=== PATIENT | female | born 1950 | race Caucasian/White ===

== ENCOUNTER → 2017-08-02 | Outpatient (CLI) | payer MEDICARE, OTHER ==
[~2017-08-02] MED LIST: ACET325 PO; ACET500 PO; ALBU3IS INH; ALBU90OI INH; ALPHA LIPOIC A600 MG PO; AMOCLA875 PO; ASPI81CH PO; BUDE6HFA INH; Bactrim 400-801 EACH PO; CEFP500 PO; CEPH250A PO; CEPH500 PO; CHOL10002 PO; CIPR500 PO; CITRACAL + D M1 EACH PO; CITRACAL-VIT D1 EAC1 PO; Colace250 MG GT; Coughtab200 MG PO; Cranberry300 MG PO; Cranberry400 MG PO; D MANNOSE MC; DIVA500EC PO; DOCU100 PO; DULO60 PO; ELLURA200 MG; EQ GENTLE30 ML BOTHEYES; ERGO50000 PO; FERRLECIT62.5 MG/5 IV; FISH1000 PO; FLOVENT INH; FLUT110OIA INH; FURO20 PO; GABA300 PO; GAVILAX17 GM PO; HYALURONIDASE INJ; HYDCOR20 PO; Hydrocodone-Ap1 EA20 PO; IMMUNE GLOBULIN INJ; IVIG; Imitrex50 MG PO; KETO.5OPSO; LIDO5TP TOP; LISI5 PO; MAGOX 400400 MG PO; MAGOXI400 PO; MOME220I; MORP15ER PO; MYCO250 PO; Micro-K10 MEQ PO; NAPR500ERA PO; NYST100TC TOP; ONDA4ODT; Omeprazole20 M1; Omeprazole20 M1 PO; POLTRIOPSO BOTHEYES; POTCHL10ER PO; PRED1SU BOTHEYES; PSYL5.85P PO; Potassium Chlo10 ME2 PO; Prilosec20 MG PO; SACC250C; SPIR25 PO; SULTRIDS PO; SUMA25 PO; Solaraze100 GM TOP; Solu-Medrol500 MG IJ; TOLT4 PO; TRIHYD253A PO; TROSPIUM CHLORI60 MG PO; Tylenol325 MG PO; ZONI100 PO; Zofran4 MG PO
== END | disposition home or self-care (01) ==
LOC: LAB 09:02
DX: J02.9 Acute pharyngitis, unspecified (principal)
CPT/HCPCS: 87070

== ENCOUNTER 2017-09-05 00:18 | Day surgery (SDC) | payer MEDICARE, OTHER ==
[~2017-09-05 00:18] MED LIST changes: -ZONI100 PO
== END 2017-09-05 14:40 | disposition home or self-care (01) ==
LOC: ATC 00:18
DX: Z45.2 Encounter for adjustment and management of vascular access device (principal)
CPT/HCPCS: 96523; J1642

== ENCOUNTER 2017-10-04 00:48 | Day surgery (SDC) | payer MEDICARE, OTHER | END 2017-10-04 16:05 | disposition home or self-care (01) | LOC: ATC 00:48 | DX: Z45.2 Encounter for adjustment and management of vascular access device (principal); G61.81 Chronic inflammatory demyelinating polyneuritis; K74.60 Unspecified cirrhosis of liver; J45.909 Unspecified asthma, uncomplicated | CPT/HCPCS: 96523; J1642 ==

== ENCOUNTER 2017-11-02 00:48 | Day surgery (SDC) | payer MEDICARE, OTHER | END 2017-11-02 22:35 | disposition home or self-care (01) | LOC: ATC 00:48 | DX: Z45.2 Encounter for adjustment and management of vascular access device (principal); G61.81 Chronic inflammatory demyelinating polyneuritis; J45.909 Unspecified asthma, uncomplicated; I27.20 Pulmonary hypertension, unspecified; D64.9 Anemia, unspecified ==

== ENCOUNTER 2017-11-09 00:25 | Day surgery (SDC) | payer MEDICARE, OTHER ==
[2017-11-09] MEDS ORDERED: ZONI100 PO (14:09)
== END 2017-11-09 14:19 | disposition home or self-care (01) ==
LOC: ATC 00:25
DX: Z45.2 Encounter for adjustment and management of vascular access device (principal); G61.81 Chronic inflammatory demyelinating polyneuritis
CPT/HCPCS: 96523; J1642

== ENCOUNTER 2017-12-09 00:16 | Day surgery (SDC) | payer MEDICARE, OTHER ==
[~2017-12-09 00:16] MED LIST changes: +ZONI100 PO
== END 2017-12-09 13:50 | disposition home or self-care (01) ==
LOC: ATC 00:16
DX: Z45.2 Encounter for adjustment and management of vascular access device (principal); D64.9 Anemia, unspecified
CPT/HCPCS: 96523; J1642

== ENCOUNTER → 2018-01-05 | Outpatient (CLI) | payer MEDICARE, OTHER | LOC: LAB 15:35 → LAB SHORT 15:35 | DX: R30.0 Dysuria (principal) | CPT/HCPCS: 87077; 87086; 87186 ==

== ENCOUNTER 2020-06-14 15:22 | Emergency (ER) | payer MEDICARE, OTHER ==
[~2020-06-14] VITALS: Ht 152.4 cm; Wt 81.7 kg
[2020-06-14 16:34] LABS: BASOPHILS ABSOLUTE AUTO 0.01 K/mm3 (0.00-0.23); BASOPHILS PERCENT AUTO 0 % (0-2); EOSINOPHILS PERCENT AUTO 0 % (0-6); Hematocrit 41.6 % (33.0-51.0); Hemoglobin 13.3 g/dL (11.5-16.0); IMMATURE GRAN ABSOLUTE AUTO 0.07 K/mm3 (0.00-0.10); IMMATURE GRAN PERCENT AUTO 1 % (0-1); LYMPHOCYTES PERCENT AUTO 5 % (21-46); MONOCYTES ABSOLUTE AUTO 0.92 K/mm3 (0.16-1.47); MONOCYTES PERCENT AUTO 7 % (4-13); Mean Corpuscular HGB 24.3 pg (26.0-34.0); Mean Corpuscular Volume 76 fL (80-100); Mean Platelet Volume 11.9 fL (9.1-12.4); NEUTROPHILS ABSOLUTE AUTO 11.08 K/mm3 (1.96-9.15); NEUTROPHILS PERCENT AUTO 87 % (41-73); Platelet Count 198 K/mm3 (150-400); RDW Coefficient Variation 15.5 % (11.7-14.2); RDW Standard Deviation 42.3 fL (35.1-46.3); Red Blood Cell Count 5.47 M/mm3 (3.80-5.20); White Blood Cell Count 12.68 K/mm3 (4.00-11.30)
[2020-06-14 16:53] LABS: Alanine Aminotransfer (ALT/SGP 25 U/L (12-78); Albumin, Blood 4.1 g/dL (3.4-5.0); Albumin/Globulin Ratio 1.3 (0.8-1.8); Alk Phos 59 U/L (50-136); Anion Gap 5 mmol/L (6-16); Aspartate Aminotrans (AST/SGOT 20 U/L (12-37); Bilirubin, Total 0.7 mg/dL (0.1-1.0); Blood Urea Nitrogen 16 mg/dL (8-24); Bun/Creatinine Ratio 30.7 (12.0-20.0); CO2, Blood 26 mmol/L (21-32); Calcium, Blood 8.8 mg/dL (8.5-10.1); Chloride, Blood 110 mmol/L (98-108); Creatinine, Blood 0.52 mg/dL (0.40-1.00); Globulin, Blood 3.1 g/dL (2.2-4.0); Glomerular Filtration Rate >60 (60-); Glucose, Blood 94 mg/dL (70-99); Potassium, Blood 3.6 mmol/L (3.5-5.5); Sodium, Blood 141 mmol/L (136-145); Total Protein, Blood 7.2 g/dL (6.4-8.2)
[2020-06-14 18:36] LABS: Source, Urine Clean Catch
[2020-06-14 18:42] LABS: Appearance, Urine Clear (Clear); Bilirubin, Urine Neg (Neg); Blood, Urine 1+ (Neg); Color, Urine Yellow (P-Yellow); Glucose Qualitative, Urine Neg (Neg); Ketones, Urine Neg (Neg); Leukocyte Esterase, Urine 2+ (Neg); Nitrite, Urine Neg (Neg); Protein, Urine 1+ (Neg); Urobilinogen, Urine NORM (Normal)
[2020-06-14 18:54] LABS: Bacteria Mod /hpf; Squamous Epithelial Cells Rare /hpf (Few)
== END 2020-06-14 20:08 | disposition home or self-care (01) ==
LOC: ER 15:22
PROVIDERS: Emergency Medicine; Physician Assistant
DX: K52.9 Noninfective gastroenteritis and colitis, unspecified (principal); Z88.5 Allergy status to narcotic agent; Z79.82 Long term (current) use of aspirin; Z79.51 Long term (current) use of inhaled steroids; Z79.899 Other long term (current) drug therapy; Z86.73 Personal history of transient ischemic attack (TIA), and cerebral infarction without residual deficits
CPT/HCPCS: 36415; 74177; 80053; 81001; 83690; 85025; 96361; 96374; 99284-25; J2405; J7030; Q9967

== ENCOUNTER 2021-01-25 15:39 | Emergency (ER) | payer MEDICARE, OTHER ==
[~2021-01-25] VITALS: Ht 152.4 cm; Wt 86.2 kg
[2021-01-25 17:04] LABS: Source, Urine Voided
[2021-01-25 17:14] LABS: BASOPHILS ABSOLUTE AUTO 0.02 K/mm3 (0.00-0.23); BASOPHILS PERCENT AUTO 0 % (0-2); EOSINOPHILS ABSOLUTE AUTO 0.03 K/mm3 (0.00-0.68); EOSINOPHILS PERCENT AUTO 1 % (0-6); Hematocrit 35.3 % (33.0-51.0); Hemoglobin 11.1 g/dL (11.5-16.0); IMMATURE GRAN PERCENT AUTO 0 % (0-1); LYMPHOCYTES ABSOLUTE AUTO 1.36 K/mm3 (0.84-5.20); LYMPHOCYTES PERCENT AUTO 27 % (21-46); MONOCYTES ABSOLUTE AUTO 0.52 K/mm3 (0.16-1.47); MONOCYTES PERCENT AUTO 10 % (4-13); Mean Corpuscular HGB 21.4 pg (26.0-34.0); Mean Corpuscular HGB Conc 31.4 g/dL (31.5-36.5); Mean Corpuscular Volume 68 fL (80-100); NEUTROPHILS ABSOLUTE AUTO 3.13 K/mm3 (1.96-9.15); NEUTROPHILS PERCENT AUTO 62 % (41-73); Platelet Count 202 K/mm3 (150-400); RDW Coefficient Variation 18.3 % (11.7-14.2); RDW Standard Deviation 44.5 fL (35.1-46.3); Red Blood Cell Count 5.18 M/mm3 (3.80-5.20); White Blood Cell Count 5.06 K/mm3 (4.00-11.30)
[2021-01-25 17:15] LABS: Appearance, Urine Clear (Clear); Bilirubin, Urine Neg (Neg); Blood, Urine Neg (Neg); Color, Urine Yellow (P-Yellow); Glucose Qualitative, Urine Neg (Neg); Ketones, Urine Neg (Neg); Leukocyte Esterase, Urine 1+ (Neg); Nitrite, Urine Neg (Neg); Protein, Urine Neg (Neg); Urobilinogen, Urine NORM (Normal)
[2021-01-25 17:25] LABS: Mean Platelet Volume 11.4 fL (9.1-12.4)
[2021-01-25 17:29] LABS: Alanine Aminotransfer (ALT/SGP 17 U/L (12-78); Albumin, Blood 3.7 g/dL (3.4-5.0); Albumin/Globulin Ratio 1.1 (0.8-1.8); Alk Phos 60 U/L (50-136); Anion Gap 5 mmol/L (6-16); Aspartate Aminotrans (AST/SGOT 15 U/L (12-37); Bilirubin, Total 0.3 mg/dL (0.1-1.0); Blood Urea Nitrogen 11 mg/dL (8-24); Bun/Creatinine Ratio 22.9 (12.0-20.0); CO2, Blood 26 mmol/L (21-32); Calcium, Blood 9.1 mg/dL (8.5-10.1); Chloride, Blood 107 mmol/L (98-108); Creatinine, Blood 0.48 mg/dL (0.40-1.00); Globulin, Blood 3.3 g/dL (2.2-4.0); Glomerular Filtration Rate >60 (60-); Glucose, Blood 107 mg/dL (70-99); Potassium, Blood 4.2 mmol/L (3.5-5.5); Sodium, Blood 138 mmol/L (136-145)
[2021-01-25 17:35] LABS: Troponin I <0.015 ng/mL (0.000-0.040)
[2021-01-25 17:45] LABS: Bacteria Mod /hpf; Red Blood Cells, Urine Not Seen /hpf (0-2); Squamous Epithelial Cells Few /hpf (Few)
[2021-01-25 19:22] LABS: SARS-Cov-2 (COVID-19) PCR, MMC NEGATIVE (NEGATIVE)
[2021-01-25] MEDS ORDERED: Percocet 5-3251 EACH PO (19:30)
== END 2021-01-25 21:59 | disposition home or self-care (01) ==
LOC: ER 15:39
PROVIDERS: Emergency Medicine
DX: R53.1 Weakness (principal); S16.1XXA Strain of muscle, fascia and tendon at neck level, initial encounter; Z20.822 Contact with and (suspected) exposure to COVID-19; Z88.5 Allergy status to narcotic agent; X58.XXXA Exposure to other specified factors, initial encounter
CPT/HCPCS: 36415; 70450; 71045; 80053; 81001; 83605; 83735; 84443; 84484; 85025; 87086; 93005; 93010; 96361; 96365; 96375; 99284-25; J1885; J2930; J7030; U0004

== ENCOUNTER 2021-11-12 09:55 | Emergency (ER) | payer MEDICARE, OTHER ==
[~2021-11-12] VITALS: Ht 154.9 cm; Wt 79.4 kg
[~2021-11-12 09:55] MED LIST changes: +Percocet 5-3251 EACH PO
[2021-11-12 11:05] LABS: BASOPHILS ABSOLUTE AUTO 0.01 K/mm3 (0.00-0.23); BASOPHILS PERCENT AUTO 0 % (0-2); EOSINOPHILS ABSOLUTE AUTO 0.01 K/mm3 (0.00-0.68); EOSINOPHILS PERCENT AUTO 0 % (0-6); Hematocrit 28.6 % (33.0-51.0); Hemoglobin 8.6 g/dL (11.5-16.0); IMMATURE GRAN ABSOLUTE AUTO 0.04 K/mm3 (0.00-0.10); IMMATURE GRAN PERCENT AUTO 1 % (0-1); LYMPHOCYTES PERCENT AUTO 14 % (21-46); MONOCYTES ABSOLUTE AUTO 0.86 K/mm3 (0.16-1.47); MONOCYTES PERCENT AUTO 10 % (4-13); Mean Corpuscular HGB 18.9 pg (26.0-34.0); Mean Corpuscular HGB Conc 30.1 g/dL (31.5-36.5); Mean Corpuscular Volume 63 fL (80-100); NEUTROPHILS ABSOLUTE AUTO 6.55 K/mm3 (1.96-9.15); NEUTROPHILS PERCENT AUTO 76 % (41-73); Platelet Count 232 K/mm3 (150-400); RDW Coefficient Variation 21.5 % (11.7-14.2); Red Blood Cell Count 4.56 M/mm3 (3.80-5.20); White Blood Cell Count 8.67 K/mm3 (4.00-11.30)
[2021-11-12 11:13] LABS: Mean Platelet Volume 10.7 fL (9.1-12.4)
[2021-11-12 11:24] LABS: Alanine Aminotransfer (ALT/SGP 21 U/L (12-78); Albumin, Blood 3.9 g/dL (3.4-5.0); Albumin/Globulin Ratio 1.4 (0.8-1.8); Alk Phos 51 U/L (50-136); Anion Gap 6 mmol/L (6-16); Aspartate Aminotrans (AST/SGOT 34 U/L (12-37); Bilirubin, Total 0.5 mg/dL (0.1-1.0); Blood Urea Nitrogen 15 mg/dL (8-24); Bun/Creatinine Ratio 34.2 (12.0-20.0); CO2, Blood 26 mmol/L (21-32); Chloride, Blood 109 mmol/L (98-108); Creatinine, Blood 0.44 mg/dL (0.40-1.00); Globulin, Blood 2.8 g/dL (2.2-4.0); Glomerular Filtration Rate >60 (60-); Glucose, Blood 88 mg/dL (70-99); Potassium, Blood 4.4 mmol/L (3.5-5.5); Sodium, Blood 141 mmol/L (136-145); Total Protein, Blood 6.7 g/dL (6.4-8.2)
== END 2021-11-12 14:11 | disposition home or self-care (01) ==
LOC: ER 09:55
PROVIDERS: Physician Assistant
DX: R05.9 Cough, unspecified (principal); J20.9 Acute bronchitis, unspecified; J18.9 Pneumonia, unspecified organism; D64.9 Anemia, unspecified; Z88.5 Allergy status to narcotic agent; Z88.7 Allergy status to serum and vaccine; Z79.899 Other long term (current) drug therapy
CPT/HCPCS: 36415; 80053; 83880; 84484; 85025; 94640; 94664

== ENCOUNTER 2022-08-20 01:16 | Day surgery (SDC) | payer MEDICARE, OTHER ==
[2022-08-20] MEDS ORDERED: VITAMIN D5000 UNIT PO (11:24)
[2022-08-20] MEDS ORDERED: MIDO5 PO (11:25)
== END 2022-08-20 10:40 | disposition home or self-care (01) ==
LOC: ATC 01:16
DX: G61.81 Chronic inflammatory demyelinating polyneuritis (principal); D50.0 Iron deficiency anemia secondary to blood loss (chronic); I50.32 Chronic diastolic (congestive) heart failure; I27.20 Pulmonary hypertension, unspecified
CPT/HCPCS: 99211

== ENCOUNTER 2022-08-27 00:26 | Day surgery (SDC) | payer MEDICARE, OTHER ==
[~2022-08-27 00:26] MED LIST changes: +MIDO5 PO; +VITAMIN D5000 UNIT PO
== END 2022-08-27 11:36 | disposition home or self-care (01) ==
LOC: ATC 00:26
DX: G61.81 Chronic inflammatory demyelinating polyneuritis (principal)
CPT/HCPCS: J1644

== ENCOUNTER 2022-09-17 00:13 | Day surgery (SDC) | payer MEDICARE, OTHER | END 2022-09-17 11:05 | disposition home or self-care (01) | LOC: ATC 00:13 | DX: G61.81 Chronic inflammatory demyelinating polyneuritis (principal); I50.32 Chronic diastolic (congestive) heart failure; Z79.899 Other long term (current) drug therapy | CPT/HCPCS: 96523; J1644 ==

== ENCOUNTER 2022-10-08 02:33 | Day surgery (SDC) | payer MEDICARE, OTHER | END 2022-10-08 11:27 | disposition home or self-care (01) | LOC: ATC 02:33 | DX: G61.81 Chronic inflammatory demyelinating polyneuritis (principal); D50.9 Iron deficiency anemia, unspecified; I50.32 Chronic diastolic (congestive) heart failure | CPT/HCPCS: 96523; J1644 ==

== ENCOUNTER 2022-10-15 01:45 | Day surgery (SDC) | payer MEDICARE, OTHER | END 2022-10-15 11:25 | disposition home or self-care (01) | LOC: ATC 01:45 | DX: G61.81 Chronic inflammatory demyelinating polyneuritis (principal); I50.32 Chronic diastolic (congestive) heart failure; I27.20 Pulmonary hypertension, unspecified; D50.0 Iron deficiency anemia secondary to blood loss (chronic) | CPT/HCPCS: 96523; J1644 ==

== ENCOUNTER 2022-10-29 01:18 | Day surgery (SDC) | payer MEDICARE, OTHER ==
[2022-10-29 14:35] VITALS: BP 114/51
== END 2022-10-29 14:35 | disposition home or self-care (01) ==
LOC: ATC 01:18
DX: G61.81 Chronic inflammatory demyelinating polyneuritis (principal); D50.0 Iron deficiency anemia secondary to blood loss (chronic); I50.32 Chronic diastolic (congestive) heart failure
CPT/HCPCS: 96523; J1644

== ENCOUNTER 2022-11-11 02:49 | Day surgery (SDC) | payer MEDICARE, OTHER ==
[2022-11-11 14:34] VITALS: BP 117/55
== END 2022-11-11 14:34 | disposition home or self-care (01) ==
LOC: ATC 02:49
DX: G61.81 Chronic inflammatory demyelinating polyneuritis (principal); I50.32 Chronic diastolic (congestive) heart failure; D50.9 Iron deficiency anemia, unspecified; I27.20 Pulmonary hypertension, unspecified
CPT/HCPCS: 96523; J1644

== ENCOUNTER 2022-11-23 01:53 | Day surgery (SDC) | payer MEDICARE, OTHER ==
[2022-11-23 09:07] VITALS: BP 112/83
--- NOTE | 2022-11-23 17:50 | NUR ---
END CAPS CLEANSED WITH ALCOHOL AND REMOVED. HUB CLEANED WITH ALCOHOL FOR 1 MINUTE. 5CC BLOOD PULLED OUT AND DISCARDED. HUB CLEANED WITH ALCOHOL. LINE FLUSHED WITH 10CC NORMAL SALINE. REPEATED SAME PROCESS ON SECOND PORT LINE. ONCE BOTH PORTS WERE FLUSHED, EACH HUB WAS CLEANSED WITH ALCOHOL AND LINES PACKED WITH HEPARIN. HUBS CLEANED AGAIN WITH ALCOHOL AND ALCOHOL SWAB CAP PLACED ON HUBS.
== END 2022-11-23 09:41 | disposition home or self-care (01) ==
LOC: ATC 01:53
DX: G61.81 Chronic inflammatory demyelinating polyneuritis (principal); D50.0 Iron deficiency anemia secondary to blood loss (chronic); I50.32 Chronic diastolic (congestive) heart failure
CPT/HCPCS: 96523; J1644

== ENCOUNTER 2022-12-30 02:55 | Day surgery (SDC) | payer MEDICARE, OTHER ==
[2022-12-30 13:48] VITALS: BP 88/52
== END 2022-12-30 14:00 | disposition home or self-care (01) ==
LOC: ATC 02:55
DX: G61.81 Chronic inflammatory demyelinating polyneuritis (principal); I50.32 Chronic diastolic (congestive) heart failure; I27.20 Pulmonary hypertension, unspecified; Z88.5 Allergy status to narcotic agent; Z79.82 Long term (current) use of aspirin; Z79.899 Other long term (current) drug therapy
CPT/HCPCS: 96523; J1644

== ENCOUNTER 2023-01-20 01:11 | Day surgery (SDC) | payer MEDICARE, OTHER ==
[2023-01-20 13:52] VITALS: BP 112/60
== END 2023-01-20 13:52 | disposition home or self-care (01) ==
LOC: ATC 01:11
DX: G61.81 Chronic inflammatory demyelinating polyneuritis (principal); I50.32 Chronic diastolic (congestive) heart failure
CPT/HCPCS: 96523; J1644

== ENCOUNTER 2023-01-27 01:05 | Day surgery (SDC) | payer MEDICARE, OTHER ==
[2023-01-27 14:46] VITALS: BP 109/74
--- NOTE | 2023-01-27 15:04 | NUR ---
CL CARE COMPLETED DURING THIS VISIT. OLD HEPARIN PACKING REMOVED FROM EACH LINE. EACH LINE FLUSHED WITH 10 ML NS AND NEW END CAPS APPLIED. EACH LINE PACKED WITH HEPARIN 1000 U/ML (SEE EMAR). CL DRESSING CHANGE COMPLETED WITH STERILE TECHNIQUE.
== END 2023-01-27 15:04 | disposition home or self-care (01) ==
LOC: ATC 01:05
DX: G61.81 Chronic inflammatory demyelinating polyneuritis (principal); I50.32 Chronic diastolic (congestive) heart failure; D50.0 Iron deficiency anemia secondary to blood loss (chronic); I27.20 Pulmonary hypertension, unspecified; Z88.5 Allergy status to narcotic agent; Z79.82 Long term (current) use of aspirin; Z79.899 Other long term (current) drug therapy
CPT/HCPCS: 96523; J1644

== ENCOUNTER 2023-02-10 03:47 | Day surgery (SDC) | payer MEDICARE, OTHER ==
[2023-02-10 14:20] VITALS: BP 103/51
== END 2023-02-10 14:32 | disposition home or self-care (01) ==
LOC: ATC 03:47
DX: G61.81 Chronic inflammatory demyelinating polyneuritis (principal)
CPT/HCPCS: 96523; J1644

== ENCOUNTER 2023-02-24 00:59 | Day surgery (SDC) | payer MEDICARE, OTHER | END 2023-02-24 13:25 | disposition home or self-care (01) | LOC: ATC 00:59 | DX: G61.81 Chronic inflammatory demyelinating polyneuritis (principal); D50.0 Iron deficiency anemia secondary to blood loss (chronic); I50.32 Chronic diastolic (congestive) heart failure; Z88.5 Allergy status to narcotic agent; Z79.82 Long term (current) use of aspirin; Z79.899 Other long term (current) drug therapy ==

== ENCOUNTER 2023-03-04 02:12 | Day surgery (SDC) | payer MEDICARE, OTHER ==
[2023-03-04 13:44] VITALS: BP 113/64
== END 2023-03-04 13:58 | disposition home or self-care (01) ==
LOC: ATC 02:12
DX: G61.81 Chronic inflammatory demyelinating polyneuritis (principal); D50.9 Iron deficiency anemia, unspecified; I50.32 Chronic diastolic (congestive) heart failure; I27.20 Pulmonary hypertension, unspecified
CPT/HCPCS: 96523; J1644

== ENCOUNTER 2023-03-31 02:16 | Day surgery (SDC) | payer MEDICARE, OTHER ==
[2023-03-31 01:41] VITALS: BP 95/76
== END 2023-03-31 14:35 | disposition home or self-care (01) ==
LOC: ATC 02:16
DX: G61.81 Chronic inflammatory demyelinating polyneuritis (principal); D50.0 Iron deficiency anemia secondary to blood loss (chronic); I50.32 Chronic diastolic (congestive) heart failure; I27.20 Pulmonary hypertension, unspecified; Z88.5 Allergy status to narcotic agent; Z79.82 Long term (current) use of aspirin; Z79.899 Other long term (current) drug therapy
CPT/HCPCS: 96523; J1644

== ENCOUNTER 2023-04-21 07:58 | Day surgery (SDC) | payer MEDICARE, OTHER ==
[2023-04-21 13:59] VITALS: BP 115/46
== END 2023-04-21 14:23 | disposition home or self-care (01) ==
LOC: ATC 07:58
DX: G61.81 Chronic inflammatory demyelinating polyneuritis (principal); D50.0 Iron deficiency anemia secondary to blood loss (chronic); I50.32 Chronic diastolic (congestive) heart failure; I27.20 Pulmonary hypertension, unspecified; Z88.5 Allergy status to narcotic agent; Z79.82 Long term (current) use of aspirin; Z79.899 Other long term (current) drug therapy
CPT/HCPCS: 96523; J1644

== ENCOUNTER 2023-05-05 03:18 | Day surgery (SDC) | payer MEDICARE, OTHER ==
[2023-05-05 14:10] VITALS: BP 101/39
== END 2023-05-05 14:32 | disposition home or self-care (01) ==
LOC: ATC 03:18
DX: G61.81 Chronic inflammatory demyelinating polyneuritis (principal); I50.32 Chronic diastolic (congestive) heart failure; I27.0 Primary pulmonary hypertension
CPT/HCPCS: 96523; J1644

== ENCOUNTER 2023-05-19 04:06 | Day surgery (SDC) | payer MEDICARE, OTHER | END 2023-05-19 14:18 | disposition home or self-care (01) | LOC: ATC 04:06 | DX: G61.81 Chronic inflammatory demyelinating polyneuritis (principal) | CPT/HCPCS: 96523; J1644 ==

== ENCOUNTER 2023-06-02 02:07 | Day surgery (SDC) | payer MEDICARE, OTHER ==
[2023-06-02 14:00] VITALS: BP 103/48
== END 2023-06-02 14:20 | disposition home or self-care (01) ==
LOC: ATC 02:07
DX: Z45.2 Encounter for adjustment and management of vascular access device (principal); G61.81 Chronic inflammatory demyelinating polyneuritis; I50.32 Chronic diastolic (congestive) heart failure; I27.20 Pulmonary hypertension, unspecified; Z88.5 Allergy status to narcotic agent; Z79.82 Long term (current) use of aspirin; Z79.899 Other long term (current) drug therapy
CPT/HCPCS: 96523; J1644

== ENCOUNTER 2023-06-16 02:43 | Day surgery (SDC) | payer MEDICARE, OTHER ==
[2023-06-16] MEDS ORDERED: Heparin Sodium 1000 Units/ML 10ML MDV IV SCH ×2 (06:00)
[2023-06-16 14:44] VITALS: BP 115/43
== END 2023-06-16 14:57 | disposition home or self-care (01) ==
LOC: ATC 02:43
DX: Z45.2 Encounter for adjustment and management of vascular access device (principal); G61.81 Chronic inflammatory demyelinating polyneuritis
CPT/HCPCS: 96523; J1644

== ENCOUNTER 2023-06-29 03:22 | Day surgery (SDC) | payer MEDICARE, OTHER ==
[2023-06-29 11:46] VITALS: BP 123/69
== END 2023-06-29 22:54 | disposition home or self-care (01) ==
LOC: ATC 03:22
DX: G61.81 Chronic inflammatory demyelinating polyneuritis (principal); I50.32 Chronic diastolic (congestive) heart failure; D50.0 Iron deficiency anemia secondary to blood loss (chronic)
CPT/HCPCS: 96523; J1644

== ENCOUNTER 2023-07-27 01:07 | Day surgery (SDC) | payer MEDICARE, OTHER ==
[2023-07-27 09:40] VITALS: BP 111/83
== END 2023-07-27 09:51 | disposition home or self-care (01) ==
LOC: ATC 01:07
DX: G61.81 Chronic inflammatory demyelinating polyneuritis (principal); I50.32 Chronic diastolic (congestive) heart failure
CPT/HCPCS: 96523; J1644

== ENCOUNTER 2023-08-10 02:42 | Day surgery (SDC) | payer MEDICARE, OTHER ==
[2023-08-10 15:05] VITALS: BP 124/78
== END 2023-08-10 15:05 | disposition home or self-care (01) ==
LOC: ATC 02:42
DX: G61.81 Chronic inflammatory demyelinating polyneuritis (principal); I50.32 Chronic diastolic (congestive) heart failure; D50.0 Iron deficiency anemia secondary to blood loss (chronic); I27.20 Pulmonary hypertension, unspecified; R60.0 Localized edema; Z88.5 Allergy status to narcotic agent; Z79.82 Long term (current) use of aspirin; Z79.899 Other long term (current) drug therapy
CPT/HCPCS: 96523; J1644

== ENCOUNTER 2023-09-07 05:14 | Day surgery (SDC) | payer MEDICARE, OTHER ==
[2023-09-07] MEDS ORDERED: Heparin Sodium 1000 Units/ML 10ML MDV IV SCH ×2 (06:00)
[2023-09-07 14:40] VITALS: BP 120/77
== END 2023-09-07 14:50 | disposition home or self-care (01) ==
LOC: ATC 05:14
DX: G61.81 Chronic inflammatory demyelinating polyneuritis (principal); D50.0 Iron deficiency anemia secondary to blood loss (chronic); I50.32 Chronic diastolic (congestive) heart failure; I27.20 Pulmonary hypertension, unspecified
CPT/HCPCS: 96523; J1644

== ENCOUNTER 2023-11-08 01:21 | Day surgery (SDC) | payer MEDICARE, OTHER ==
[2023-11-08] MEDS ORDERED: Heparin Sodium 1000 Units/ML 10ML MDV IV SCH ×2 (06:00)
[2023-11-08 15:14] VITALS: BP 100/67
== END 2023-11-08 15:15 | disposition home or self-care (01) ==
LOC: ATC 01:21
DX: G61.81 Chronic inflammatory demyelinating polyneuritis (principal); I50.32 Chronic diastolic (congestive) heart failure; Z88.5 Allergy status to narcotic agent; Z79.82 Long term (current) use of aspirin; Z79.899 Other long term (current) drug therapy
CPT/HCPCS: 96523; J1644

== ENCOUNTER 2023-11-22 00:49 | Day surgery (SDC) | payer MEDICARE, OTHER ==
[2023-11-22 15:18] VITALS: BP 93/39
== END 2023-11-22 15:20 | disposition home or self-care (01) ==
LOC: ATC 00:49
DX: G61.81 Chronic inflammatory demyelinating polyneuritis (principal); I50.30 Unspecified diastolic (congestive) heart failure

== ENCOUNTER 2024-01-17 00:52 | Day surgery (SDC) | payer MEDICARE, OTHER ==
[2024-01-17] MEDS ORDERED: Heparin Sodium 5000 Units/ML 1ML MDV IV SCH (07:05)
[2024-01-17] MEDS ORDERED: Heparin Sodium 1000 Units/ML 10ML MDV IV SCH (14:35)
[2024-01-17 14:59] VITALS: BP 91/53
== END 2024-01-17 15:04 | disposition home or self-care (01) ==
LOC: ATC 00:52
DX: G61.81 Chronic inflammatory demyelinating polyneuritis (principal); D50.0 Iron deficiency anemia secondary to blood loss (chronic); I50.32 Chronic diastolic (congestive) heart failure; I27.20 Pulmonary hypertension, unspecified; Z88.5 Allergy status to narcotic agent; Z79.899 Other long term (current) drug therapy
CPT/HCPCS: 96523; J1644

== ENCOUNTER 2024-01-31 02:54 | Day surgery (SDC) | payer MEDICARE, OTHER ==
[2024-01-31] MEDS ORDERED: Heparin Sodium 1000 Units/ML 10ML MDV IV SCH ×3 (06:00→07:15)
[2024-01-31 14:29] VITALS: BP 103/41
--- NOTE | 2024-01-31 15:14 | NUR ---
DRAW BACK AND REMOVED 3ML BLOOD FROM EACH LINE. END CAPS CHANGED AND EACH LINE FLUSHED WITH 10ML NS FOLLOWED BY HEPARIN. 2.2ML TO ONE LINE AND 2.3ML TO THE OTHER LINE. THEN REMOVED OLD DRESSING, CLEANSED SKIN WITH CHLORAPREP AND APPLIED NEW DRESSING MAINTAINING STERILE TECHNIQUE FOR DRESSING CHANGE.
== END 2024-01-31 14:48 | disposition home or self-care (01) ==
LOC: ATC 02:54
DX: G61.81 Chronic inflammatory demyelinating polyneuritis (principal); D50.0 Iron deficiency anemia secondary to blood loss (chronic); I50.32 Chronic diastolic (congestive) heart failure; I27.20 Pulmonary hypertension, unspecified; Z88.5 Allergy status to narcotic agent
CPT/HCPCS: 96523; J1644

== ENCOUNTER 2024-02-14 01:41 | Day surgery (SDC) | payer MEDICARE, OTHER ==
[2024-02-14] MEDS ORDERED: Heparin Sodium 1000 Units/ML 10ML MDV XX SCH ×2 (06:00)
[2024-02-14 14:44] VITALS: BP 90/60
== END 2024-02-14 14:54 | disposition home or self-care (01) ==
LOC: ATC 01:41
DX: G61.81 Chronic inflammatory demyelinating polyneuritis (principal); I50.32 Chronic diastolic (congestive) heart failure; D50.9 Iron deficiency anemia, unspecified
CPT/HCPCS: 96523; J1644

== ENCOUNTER 2024-03-13 01:59 | Day surgery (SDC) | payer MEDICARE, OTHER ==
[2024-03-13] MEDS ORDERED: Heparin Sodium 1000 Units/ML 10ML MDV XX SCH ×2 (07:30)
[2024-03-13 15:08] VITALS: BP 115/59
== END 2024-03-13 15:08 | disposition home or self-care (01) ==
LOC: ATC 01:59
DX: G61.81 Chronic inflammatory demyelinating polyneuritis (principal); I50.32 Chronic diastolic (congestive) heart failure; I27.20 Pulmonary hypertension, unspecified
CPT/HCPCS: 96523; J1644

== ENCOUNTER 2024-04-18 02:32 | Day surgery (SDC) | payer MEDICARE, OTHER ==
[2024-04-18] MEDS ORDERED: Heparin Sodium 1000 Units/ML 10ML MDV IV SCH (07:10)
[2024-04-18 14:28] VITALS: BP 116/46
== END 2024-04-18 14:44 | disposition home or self-care (01) ==
LOC: ATC 02:32
DX: G61.81 Chronic inflammatory demyelinating polyneuritis (principal); I50.32 Chronic diastolic (congestive) heart failure; D50.0 Iron deficiency anemia secondary to blood loss (chronic); I27.20 Pulmonary hypertension, unspecified
CPT/HCPCS: 96523; J1644

== ENCOUNTER 2024-05-01 02:05 | Day surgery (SDC) | payer MEDICARE, OTHER ==
[2024-05-01] MEDS ORDERED: Heparin Sodium 1000 Units/ML 10ML MDV XX SCH ×2 (06:00)
[2024-05-01 14:17] VITALS: BP 95/35
== END 2024-05-01 14:37 | disposition home or self-care (01) ==
LOC: ATC 02:05
DX: Z45.2 Encounter for adjustment and management of vascular access device (principal); G61.81 Chronic inflammatory demyelinating polyneuritis; M81.0 Age-related osteoporosis without current pathological fracture; I27.20 Pulmonary hypertension, unspecified; I50.32 Chronic diastolic (congestive) heart failure; D50.9 Iron deficiency anemia, unspecified; Z88.5 Allergy status to narcotic agent; Z88.8 Allergy status to other drugs, medicaments and biological substances
CPT/HCPCS: 96523; J1644

== ENCOUNTER 2024-05-15 01:49 | Day surgery (SDC) | payer MEDICARE, OTHER ==
[2024-05-15] MEDS ORDERED: Heparin Sodium 1000 Units/ML 10ML MDV IV SCH ×2 (06:00)
[2024-05-15 15:03] VITALS: BP 122/50
--- NOTE | 2024-05-15 15:36 | NUR ---
WITHDREW 4CC OF BLOOD AND DISCARDED WITH BOTH LINES. LINES WERE FLUSHED WITH 20CC OF NS. BOTH LINES WERE PACKED WITH HEPARIN PER LINE CLAMPS. NEW END CAPS WERE PLACED AND ALCOHOL CAPS WERE PLACED ON LINES.
== END 2024-05-15 15:05 | disposition home or self-care (01) ==
LOC: ATC 01:49
DX: Z45.2 Encounter for adjustment and management of vascular access device (principal); G61.81 Chronic inflammatory demyelinating polyneuritis; M81.0 Age-related osteoporosis without current pathological fracture; I50.32 Chronic diastolic (congestive) heart failure; I27.20 Pulmonary hypertension, unspecified
CPT/HCPCS: 96523; J1644

== ENCOUNTER 2024-06-12 00:43 | Day surgery (SDC) | payer MEDICARE, OTHER ==
[2024-06-12] MEDS ORDERED: Heparin Sodium 1000 Units/ML 10ML MDV IV SCH ×2 (06:00)
[2024-06-12 14:51] VITALS: BP 91/60
--- NOTE | 2024-06-12 15:46 | NUR ---
PT WITH A MERLIN CATHETER IN L CHEST. REMOVED CAP FROM BOTH LINES AND WITHDREW 5CC OF BLOOD AND DISCARDED. BOTH LINES FLUSHED WITH 10CC OF NS. BOTH LINES PACKED WITH HEPARIN PER LINE NOTES. NEW ALCOHOL END CAPS PLACED. SITE LOOKS PINK, NO REDNESS NOTED. SITE HAS A SMALL SCAB ON TOP OF LINE. PT STATES SITE IS PAINFULL AT TIMES.
== END 2024-06-12 14:55 | disposition home or self-care (01) ==
LOC: ATC 00:43
DX: G61.81 Chronic inflammatory demyelinating polyneuritis (principal); M81.0 Age-related osteoporosis without current pathological fracture; I27.20 Pulmonary hypertension, unspecified; I50.32 Chronic diastolic (congestive) heart failure; Z79.899 Other long term (current) drug therapy
CPT/HCPCS: 36592; 96523; J1644

== ENCOUNTER 2024-06-26 03:11 | Day surgery (SDC) | payer MEDICARE, OTHER ==
[2024-06-26] MEDS ORDERED: Heparin Sodium 1000 Units/ML 10ML MDV IV SCH ×2 (06:00)
[2024-06-26 15:58] VITALS: BP 107/70
--- NOTE | 2024-06-26 16:43 | NUR ---
PT'S LINES ON CENTRAL LINE ACCESSED WITH 10CC EMPTY SYRINGE. EACH LINE WITHDREW 6CC OF BLOOD AND DISCARDED. EACH LINE FLUSHED WITH 20CC OF NS. EACH LINE WAS THAN FLUSHED WITH HEPARIN PER ORDER AND NEW ALCOHOL END CAPS PLACED.
== END 2024-06-26 16:00 | disposition home or self-care (01) ==
LOC: ATC 03:11
DX: Z45.2 Encounter for adjustment and management of vascular access device (principal); G61.81 Chronic inflammatory demyelinating polyneuritis; M81.0 Age-related osteoporosis without current pathological fracture; I27.20 Pulmonary hypertension, unspecified; I50.32 Chronic diastolic (congestive) heart failure; Z79.899 Other long term (current) drug therapy; Z88.5 Allergy status to narcotic agent; Z88.8 Allergy status to other drugs, medicaments and biological substances
CPT/HCPCS: 96523; J1644

== ENCOUNTER 2024-07-09 02:55 | Day surgery (SDC) | payer MEDICARE, OTHER ==
[2024-07-09] MEDS ORDERED: Heparin Sodium 1000 Units/ML 10ML MDV IV SCH ×2 (06:00)
[2024-07-09 14:25] VITALS: BP 165/92
== END 2024-07-09 14:41 | disposition home or self-care (01) ==
LOC: ATC 02:55
DX: G61.81 Chronic inflammatory demyelinating polyneuritis (principal); K21.9 Gastro-esophageal reflux disease without esophagitis; I50.9 Heart failure, unspecified; J45.909 Unspecified asthma, uncomplicated; Z88.5 Allergy status to narcotic agent; Z79.899 Other long term (current) drug therapy
CPT/HCPCS: 96523; J1644

== ENCOUNTER 2024-07-17 03:36 | Day surgery (SDC) | payer MEDICARE, OTHER ==
[2024-07-17] MEDS ORDERED: Heparin Sodium 1000 Units/ML 10ML MDV IV SCH ×2 (06:00)
[2024-07-17] MEDS ORDERED: HYALURONIDASE SC SCH (06:00)
[2024-07-17] MEDS ORDERED: [UNRECOGNIZED DRUG - OTHER] SC SCH (06:00)
[2024-07-17 14:48] VITALS: BP 80/55
--- NOTE | 2024-07-17 15:07 | NUR ---
BOTH LINES WITH END CAPS INTACT. REMOVED END CAP WITH STERILE TECHNIQUE. WITHDREW 6CC OUT OF BOTH LINES AND DISCARDED. EACH LINE WASS FLUSHED WITH 10CC OF NS. BOTH LINES FLUSHED WITH HEAPARIN PER ORDER. DRESSING CHANGED PER STERILE TECHNIQUE. SKIN CLEANED WITH CHLORAPREP AND LET DRY. BIOPATCH APPLIED OVER INSERTION OF CENTRAL LINE. NEW WINDOW DRESSING APPLIED OVER SITE. PT TOLERATED PROCEDURE WELL.
== END 2024-07-17 14:50 | disposition home or self-care (01) ==
LOC: ATC 03:36
DX: G61.81 Chronic inflammatory demyelinating polyneuritis (principal); M81.0 Age-related osteoporosis without current pathological fracture; I25.2 Old myocardial infarction; K21.9 Gastro-esophageal reflux disease without esophagitis; Z99.3 Dependence on wheelchair; Z88.5 Allergy status to narcotic agent; Z88.8 Allergy status to other drugs, medicaments and biological substances; Z79.899 Other long term (current) drug therapy; Z86.73 Personal history of transient ischemic attack (TIA), and cerebral infarction without residual deficits; Z90.49 Acquired absence of other specified parts of digestive tract; Z90.710 Acquired absence of both cervix and uterus
CPT/HCPCS: 96523; J1644

== ENCOUNTER 2024-07-24 05:52 | Day surgery (SDC) | payer MEDICARE, OTHER ==
[2024-07-24] MEDS ORDERED: [UNRECOGNIZED DRUG - OTHER] SC SCH (06:00)
[2024-07-24] MEDS ORDERED: Heparin Sodium 1000 Units/ML 10ML MDV IV SCH ×2 (15:15)
== END 2024-07-24 16:10 | disposition home or self-care (01) ==
LOC: ATC 05:52
DX: G61.81 Chronic inflammatory demyelinating polyneuritis (principal); M81.0 Age-related osteoporosis without current pathological fracture; Z88.5 Allergy status to narcotic agent; Z79.899 Other long term (current) drug therapy
CPT/HCPCS: 96372; 99211; J1644; J9334

== ENCOUNTER 2024-07-31 06:53 | Day surgery (SDC) | payer MEDICARE, OTHER ==
[~2024-07-31 06:53] MED LIST changes: +Heparin Sodium 1000 Units/ML 10ML MDV IV SCH; +[UNRECOGNIZED DRUG - OTHER] SC SCH
[2024-07-31 15:45] VITALS: BP 103/68
== END 2024-07-31 15:55 | disposition home or self-care (01) ==
LOC: ATC 06:53
DX: G61.81 Chronic inflammatory demyelinating polyneuritis (principal); M81.0 Age-related osteoporosis without current pathological fracture; I11.0 Hypertensive heart disease with heart failure; I50.9 Heart failure, unspecified; J45.909 Unspecified asthma, uncomplicated; I25.2 Old myocardial infarction; K21.9 Gastro-esophageal reflux disease without esophagitis; Z99.3 Dependence on wheelchair; Z88.5 Allergy status to narcotic agent; Z88.8 Allergy status to other drugs, medicaments and biological substances; Z79.899 Other long term (current) drug therapy; Z90.49 Acquired absence of other specified parts of digestive tract; Z90.710 Acquired absence of both cervix and uterus; Z86.73 Personal history of transient ischemic attack (TIA), and cerebral infarction without residual deficits
CPT/HCPCS: 96372; 96523; J1644; J9334

== ENCOUNTER 2024-08-07 04:42 | Day surgery (SDC) | payer MEDICARE, OTHER ==
[~2024-08-07 04:42] MED LIST changes: -Heparin Sodium 1000 Units/ML 10ML MDV IV SCH; -[UNRECOGNIZED DRUG - OTHER] SC SCH
[2024-08-07] MEDS ORDERED: [UNRECOGNIZED DRUG - OTHER] SC SCH (06:00)
[2024-08-07 15:05] VITALS: BP 94/61
== END 2024-08-07 15:15 | disposition home or self-care (01) ==
LOC: ATC 04:42
DX: G61.81 Chronic inflammatory demyelinating polyneuritis (principal); I11.0 Hypertensive heart disease with heart failure; I50.9 Heart failure, unspecified; K21.9 Gastro-esophageal reflux disease without esophagitis; I25.2 Old myocardial infarction; Z88.5 Allergy status to narcotic agent
CPT/HCPCS: 96372; J9334

== ENCOUNTER 2024-08-14 05:19 | Day surgery (SDC) | payer MEDICARE, OTHER ==
[2024-08-14] MEDS ORDERED: Heparin Sodium 1000 Units/ML 10ML MDV IV SCH (07:35)
[2024-08-14] MEDS ORDERED: [UNRECOGNIZED DRUG - OTHER] SC SCH (07:40)
[2024-08-14 15:40] VITALS: BP 107/68
== END 2024-08-14 15:55 | disposition home or self-care (01) ==
LOC: ATC 05:19
DX: G61.81 Chronic inflammatory demyelinating polyneuritis (principal); M81.0 Age-related osteoporosis without current pathological fracture; J45.909 Unspecified asthma, uncomplicated; I50.9 Heart failure, unspecified; I25.2 Old myocardial infarction; K21.9 Gastro-esophageal reflux disease without esophagitis; Z88.5 Allergy status to narcotic agent
CPT/HCPCS: 96372; 99211; J1644; J9334

== ENCOUNTER 2024-08-21 01:14 | Day surgery (SDC) | payer MEDICARE, OTHER ==
[2024-08-21] MEDS ORDERED: [UNRECOGNIZED DRUG - OTHER] SC SCH (06:00)
[2024-08-21] MEDS ORDERED: Heparin Sodium 1000 Units/ML 10ML MDV IV SCH ×2 (06:00)
[2024-08-21 15:20] VITALS: BP 130/85
--- NOTE | 2024-08-21 15:31 | NUR ---
PT CAME TO CLINIC STATING SHE DID NOT WANT HER PERMICATH DRESSING FLUSHED OR DRESSING CHANGE, BECAUSE SHE IS GETTING THAT OUT ON Tuesday08/23/24. PT VERY EXCITED.
== END 2024-08-21 15:24 | disposition home or self-care (01) ==
LOC: ATC 01:14
DX: G61.81 Chronic inflammatory demyelinating polyneuritis (principal)
CPT/HCPCS: 96372; J9334

== ENCOUNTER 2024-08-28 09:08 | Day surgery (SDC) | payer MEDICARE, OTHER ==
[~2024-08-28 09:08] MED LIST changes: +Heparin Sodium 1000 Units/ML 10ML MDV IV SCH; +[UNRECOGNIZED DRUG - OTHER] SC SCH
[2024-08-28 15:11] VITALS: BP 91/67
== END 2024-08-28 15:18 | disposition home or self-care (01) ==
LOC: ATC 09:08
DX: G61.81 Chronic inflammatory demyelinating polyneuritis (principal); M81.0 Age-related osteoporosis without current pathological fracture; J45.909 Unspecified asthma, uncomplicated; I50.9 Heart failure, unspecified; I25.2 Old myocardial infarction
CPT/HCPCS: 96372; J9334

== ENCOUNTER 2024-09-04 00:16 | Day surgery (SDC) | payer MEDICARE, OTHER ==
[~2024-09-04 00:16] MED LIST changes: -Heparin Sodium 1000 Units/ML 10ML MDV IV SCH; -[UNRECOGNIZED DRUG - OTHER] SC SCH
[2024-09-04] MEDS ORDERED: [UNRECOGNIZED DRUG - OTHER] SC SCH (06:00)
[2024-09-04 18:18] VITALS: BP 95/58
== END 2024-09-04 14:56 | disposition home or self-care (01) ==
LOC: ATC 00:16
DX: G61.81 Chronic inflammatory demyelinating polyneuritis (principal); M81.0 Age-related osteoporosis without current pathological fracture; I50.9 Heart failure, unspecified; K21.9 Gastro-esophageal reflux disease without esophagitis; I25.2 Old myocardial infarction; Z88.5 Allergy status to narcotic agent; Z79.899 Other long term (current) drug therapy
CPT/HCPCS: 96372; J9334

== ENCOUNTER 2024-09-11 00:09 | Day surgery (SDC) | payer MEDICARE, OTHER ==
[2024-09-11] MEDS ORDERED: [UNRECOGNIZED DRUG - OTHER] SC SCH (06:00)
== END 2024-09-11 15:08 | disposition home or self-care (01) ==
LOC: ATC 00:09
DX: G61.81 Chronic inflammatory demyelinating polyneuritis (principal); M81.0 Age-related osteoporosis without current pathological fracture; J45.909 Unspecified asthma, uncomplicated; I50.9 Heart failure, unspecified; I25.2 Old myocardial infarction
CPT/HCPCS: 96372; J9334

== ENCOUNTER 2024-09-18 00:21 | Day surgery (SDC) | payer MEDICARE, OTHER ==
[2024-09-18] MEDS ORDERED: [UNRECOGNIZED DRUG - OTHER] SC SCH (06:00)
[2024-09-18 15:35] VITALS: BP 101/45
== END 2024-09-18 15:40 | disposition home or self-care (01) ==
LOC: ATC 00:21
DX: G61.81 Chronic inflammatory demyelinating polyneuritis (principal); M81.0 Age-related osteoporosis without current pathological fracture; D68.69 Other thrombophilia; I11.0 Hypertensive heart disease with heart failure; I50.9 Heart failure, unspecified; I25.2 Old myocardial infarction; K21.9 Gastro-esophageal reflux disease without esophagitis; Z79.899 Other long term (current) drug therapy; Z99.3 Dependence on wheelchair; Z88.5 Allergy status to narcotic agent; Z88.8 Allergy status to other drugs, medicaments and biological substances; Z90.49 Acquired absence of other specified parts of digestive tract; Z90.710 Acquired absence of both cervix and uterus
CPT/HCPCS: 96372; J9334

== ENCOUNTER 2024-09-25 03:12 | Day surgery (SDC) | payer MEDICARE, OTHER ==
[2024-09-25] MEDS ORDERED: [UNRECOGNIZED DRUG - OTHER] SC SCH (06:00)
[2024-09-25 15:29] VITALS: BP 97/70
== END 2024-09-25 15:24 | disposition home or self-care (01) ==
LOC: ATC 03:12
DX: G61.81 Chronic inflammatory demyelinating polyneuritis (principal); I11.0 Hypertensive heart disease with heart failure; I50.9 Heart failure, unspecified; K21.9 Gastro-esophageal reflux disease without esophagitis; J45.909 Unspecified asthma, uncomplicated; Z88.5 Allergy status to narcotic agent; Z79.899 Other long term (current) drug therapy
CPT/HCPCS: 96372; J9334

== ENCOUNTER 2024-10-03 01:25 | Day surgery (SDC) | payer MEDICARE, OTHER ==
[~2024-10-03 01:25] MED LIST changes: +[UNRECOGNIZED DRUG - OTHER] SC SCH
[2024-10-03] MEDS ORDERED: [UNRECOGNIZED DRUG - OTHER] SC SCH (06:00)
== END 2024-10-03 15:52 | disposition home or self-care (01) ==
LOC: ATC 01:25
DX: G61.81 Chronic inflammatory demyelinating polyneuritis (principal); M81.0 Age-related osteoporosis without current pathological fracture; J45.909 Unspecified asthma, uncomplicated; I11.0 Hypertensive heart disease with heart failure; I50.9 Heart failure, unspecified; K21.9 Gastro-esophageal reflux disease without esophagitis; Z88.5 Allergy status to narcotic agent
CPT/HCPCS: 96372; J9334

== ENCOUNTER 2024-10-09 03:01 | Day surgery (SDC) | payer MEDICARE, OTHER ==
[~2024-10-09 03:01] MED LIST changes: -[UNRECOGNIZED DRUG - OTHER] SC SCH
[2024-10-09] MEDS ORDERED: [UNRECOGNIZED DRUG - OTHER] SC SCH (06:00)
[2024-10-09 10:55] VITALS: BP 135/73
[2024-10-09 15:20] VITALS: BP 99/53
== END 2024-10-09 15:21 | disposition home or self-care (01) ==
LOC: ATC 03:01
DX: G61.81 Chronic inflammatory demyelinating polyneuritis (principal); M81.0 Age-related osteoporosis without current pathological fracture; J45.909 Unspecified asthma, uncomplicated; I50.9 Heart failure, unspecified; K21.9 Gastro-esophageal reflux disease without esophagitis
CPT/HCPCS: 96372; J9334

== ENCOUNTER 2024-10-16 03:45 | Day surgery (SDC) | payer MEDICARE, OTHER ==
[2024-10-16] MEDS ORDERED: [UNRECOGNIZED DRUG - OTHER] SC SCH (06:00)
[2024-10-16 15:14] VITALS: BP 102/66
== END 2024-10-16 15:18 | disposition home or self-care (01) ==
LOC: ATC 03:45
DX: G61.81 Chronic inflammatory demyelinating polyneuritis (principal); M81.0 Age-related osteoporosis without current pathological fracture; Z88.5 Allergy status to narcotic agent; Z79.899 Other long term (current) drug therapy; I50.9 Heart failure, unspecified; I25.2 Old myocardial infarction
CPT/HCPCS: 96372; J9334

== ENCOUNTER 2024-10-23 02:27 | Day surgery (SDC) | payer MEDICARE, OTHER ==
[2024-10-23] MEDS ORDERED: [UNRECOGNIZED DRUG - OTHER] SC SCH (06:00)
[2024-10-23 15:27] VITALS: BP 111/92
== END 2024-10-23 15:33 | disposition home or self-care (01) ==
LOC: ATC 02:27
DX: G61.81 Chronic inflammatory demyelinating polyneuritis (principal); M81.0 Age-related osteoporosis without current pathological fracture; I50.9 Heart failure, unspecified; K21.9 Gastro-esophageal reflux disease without esophagitis; I25.2 Old myocardial infarction; I11.0 Hypertensive heart disease with heart failure
CPT/HCPCS: 96372; J9334

== ENCOUNTER 2024-10-30 04:05 | Day surgery (SDC) | payer MEDICARE, OTHER ==
[2024-10-30] MEDS ORDERED: [UNRECOGNIZED DRUG - OTHER] SC SCH (06:00)
[2024-10-30 15:25] VITALS: BP 103/63
== END 2024-10-30 15:29 | disposition home or self-care (01) ==
LOC: ATC 04:05
DX: G61.81 Chronic inflammatory demyelinating polyneuritis (principal); M81.0 Age-related osteoporosis without current pathological fracture; I25.2 Old myocardial infarction
CPT/HCPCS: 96372; J9334

== ENCOUNTER 2024-11-06 05:05 | Day surgery (SDC) | payer MEDICARE, OTHER ==
[2024-11-06] MEDS ORDERED: [UNRECOGNIZED DRUG - OTHER] SC SCH (06:00)
[2024-11-06 15:30] VITALS: BP 118/53
== END 2024-11-06 15:58 | disposition home or self-care (01) ==
LOC: ATC 05:05
DX: G61.81 Chronic inflammatory demyelinating polyneuritis (principal); Z99.3 Dependence on wheelchair; Z79.899 Other long term (current) drug therapy
CPT/HCPCS: 96372; J9334

== ENCOUNTER 2024-11-13 03:58 | Day surgery (SDC) | payer MEDICARE, OTHER ==
[2024-11-13] MEDS ORDERED: [UNRECOGNIZED DRUG - OTHER] SC SCH (06:00)
== END 2024-11-13 14:57 | disposition home or self-care (01) ==
LOC: ATC 03:58
DX: G61.81 Chronic inflammatory demyelinating polyneuritis (principal); J45.909 Unspecified asthma, uncomplicated; K21.9 Gastro-esophageal reflux disease without esophagitis; I25.2 Old myocardial infarction; Z99.3 Dependence on wheelchair; Z79.899 Other long term (current) drug therapy; Z88.5 Allergy status to narcotic agent; Z88.8 Allergy status to other drugs, medicaments and biological substances
CPT/HCPCS: 96372; J9334

== ENCOUNTER 2024-11-20 02:52 | Day surgery (SDC) | payer MEDICARE, OTHER ==
[2024-11-20] MEDS ORDERED: [UNRECOGNIZED DRUG - OTHER] SC SCH (06:00)
[2024-11-20 14:12] VITALS: BP 95/67
== END 2024-11-20 14:16 | disposition home or self-care (01) ==
LOC: ATC 02:52
DX: G61.81 Chronic inflammatory demyelinating polyneuritis (principal); M81.0 Age-related osteoporosis without current pathological fracture; I50.9 Heart failure, unspecified; K21.9 Gastro-esophageal reflux disease without esophagitis; Z88.5 Allergy status to narcotic agent
CPT/HCPCS: 96372; J9334

== ENCOUNTER 2024-11-27 02:44 | Day surgery (SDC) | payer MEDICARE, OTHER ==
[2024-11-27] MEDS ORDERED: [UNRECOGNIZED DRUG - OTHER] SC SCH (06:00)
== END 2024-11-27 15:16 | disposition home or self-care (01) ==
LOC: ATC 02:44
DX: G61.81 Chronic inflammatory demyelinating polyneuritis (principal); R29.810 Facial weakness; M81.0 Age-related osteoporosis without current pathological fracture; I69.351 Hemiplegia and hemiparesis following cerebral infarction affecting right dominant side; R13.10 Dysphagia, unspecified; J45.909 Unspecified asthma, uncomplicated; I11.0 Hypertensive heart disease with heart failure; I50.9 Heart failure, unspecified; K21.9 Gastro-esophageal reflux disease without esophagitis; I25.2 Old myocardial infarction; Z79.899 Other long term (current) drug therapy; Z99.3 Dependence on wheelchair
CPT/HCPCS: 96372; J9334

== ENCOUNTER 2024-12-04 00:26 | Day surgery (SDC) | payer MEDICARE, OTHER ==
[2024-12-04] MEDS ORDERED: [UNRECOGNIZED DRUG - OTHER] SC SCH (06:00)
[2024-12-04 15:02] VITALS: BP 100/82
== END 2024-12-04 15:05 | disposition home or self-care (01) ==
LOC: ATC 00:26
DX: G61.81 Chronic inflammatory demyelinating polyneuritis (principal); M81.0 Age-related osteoporosis without current pathological fracture; I69.351 Hemiplegia and hemiparesis following cerebral infarction affecting right dominant side; D68.59 Other primary thrombophilia; J45.909 Unspecified asthma, uncomplicated; K21.9 Gastro-esophageal reflux disease without esophagitis; I25.2 Old myocardial infarction; Z79.899 Other long term (current) drug therapy; Z88.5 Allergy status to narcotic agent; Z88.8 Allergy status to other drugs, medicaments and biological substances; Z99.3 Dependence on wheelchair
CPT/HCPCS: 96372; J9334

== ENCOUNTER 2024-12-18 04:20 | Day surgery (SDC) | payer MEDICARE, OTHER ==
[~2024-12-18 04:20] MED LIST changes: +[UNRECOGNIZED DRUG - OTHER] SC SCH
[2024-12-18 14:45] VITALS: BP 98/39
== END 2024-12-18 14:47 | disposition home or self-care (01) ==
LOC: ATC 04:20
DX: G61.81 Chronic inflammatory demyelinating polyneuritis (principal); M81.0 Age-related osteoporosis without current pathological fracture; J45.909 Unspecified asthma, uncomplicated; I11.0 Hypertensive heart disease with heart failure; I50.9 Heart failure, unspecified; I25.2 Old myocardial infarction; K21.9 Gastro-esophageal reflux disease without esophagitis; Z88.5 Allergy status to narcotic agent; Z79.899 Other long term (current) drug therapy
CPT/HCPCS: 96372; J9334

== ENCOUNTER 2025-01-15 03:00 | Day surgery (SDC) | payer MEDICARE, OTHER ==
[~2025-01-15 03:00] MED LIST changes: -[UNRECOGNIZED DRUG - OTHER] SC SCH
[2025-01-15] MEDS ORDERED: [UNRECOGNIZED DRUG - OTHER] SC SCH (06:00)
== END 2025-01-15 15:19 | disposition home or self-care (01) ==
LOC: ATC 03:00
DX: G61.81 Chronic inflammatory demyelinating polyneuritis (principal)
CPT/HCPCS: 96372; J9334

== ENCOUNTER 2025-01-22 03:24 | Day surgery (SDC) | payer MEDICARE, OTHER ==
[2025-01-22] MEDS ORDERED: [UNRECOGNIZED DRUG - OTHER] SC SCH (06:00)
[2025-01-22 14:47] VITALS: BP 87/76
== END 2025-01-22 14:50 | disposition home or self-care (01) ==
LOC: ATC 03:24
DX: G61.81 Chronic inflammatory demyelinating polyneuritis (principal); M81.0 Age-related osteoporosis without current pathological fracture; I69.351 Hemiplegia and hemiparesis following cerebral infarction affecting right dominant side; D68.59 Other primary thrombophilia; I11.0 Hypertensive heart disease with heart failure; I50.9 Heart failure, unspecified; K21.9 Gastro-esophageal reflux disease without esophagitis; I25.2 Old myocardial infarction; Z79.899 Other long term (current) drug therapy; Z99.3 Dependence on wheelchair
CPT/HCPCS: 96372; J9334

== ENCOUNTER 2025-01-29 01:11 | Day surgery (SDC) | payer MEDICARE, OTHER ==
[2025-01-29] MEDS ORDERED: [UNRECOGNIZED DRUG - OTHER] SC SCH (07:00)
[2025-01-29 14:40] VITALS: BP 81/71
== END 2025-01-29 14:45 | disposition home or self-care (01) ==
LOC: ATC 01:11
DX: G61.81 Chronic inflammatory demyelinating polyneuritis (principal); R27.0 Ataxia, unspecified; R29.810 Facial weakness; M81.0 Age-related osteoporosis without current pathological fracture; I69.354 Hemiplegia and hemiparesis following cerebral infarction affecting left non-dominant side; R56.9 Unspecified convulsions; J45.909 Unspecified asthma, uncomplicated; K21.9 Gastro-esophageal reflux disease without esophagitis; Z99.3 Dependence on wheelchair; Z79.899 Other long term (current) drug therapy; Z88.8 Allergy status to other drugs, medicaments and biological substances; Z90.49 Acquired absence of other specified parts of digestive tract; Z90.710 Acquired absence of both cervix and uterus
CPT/HCPCS: 96372; J9334

== ENCOUNTER 2025-02-05 01:07 | Day surgery (SDC) | payer MEDICARE, OTHER ==
[2025-02-05] MEDS ORDERED: [UNRECOGNIZED DRUG - OTHER] SC SCH (06:00)
== END 2025-02-05 14:49 | disposition home or self-care (01) ==
LOC: ATC 01:07
DX: G61.81 Chronic inflammatory demyelinating polyneuritis (principal); M81.0 Age-related osteoporosis without current pathological fracture; I69.351 Hemiplegia and hemiparesis following cerebral infarction affecting right dominant side; D68.69 Other thrombophilia; J45.909 Unspecified asthma, uncomplicated; I11.0 Hypertensive heart disease with heart failure; I50.9 Heart failure, unspecified; K21.9 Gastro-esophageal reflux disease without esophagitis; I25.2 Old myocardial infarction; Z79.899 Other long term (current) drug therapy; Z99.3 Dependence on wheelchair
CPT/HCPCS: 96372; J9334

== ENCOUNTER 2025-02-12 01:32 | Day surgery (SDC) | payer MEDICARE, OTHER ==
[2025-02-12] MEDS ORDERED: [UNRECOGNIZED DRUG - OTHER] SC SCH (06:00)
[2025-02-12 14:54] VITALS: BP 95/57
== END 2025-02-12 14:55 | disposition home or self-care (01) ==
LOC: ATC 01:32
DX: G61.81 Chronic inflammatory demyelinating polyneuritis (principal); I11.0 Hypertensive heart disease with heart failure; I50.9 Heart failure, unspecified; J45.909 Unspecified asthma, uncomplicated; Z79.899 Other long term (current) drug therapy; Z88.5 Allergy status to narcotic agent; Z88.8 Allergy status to other drugs, medicaments and biological substances
CPT/HCPCS: 96372; J9334

== ENCOUNTER 2025-02-19 14:07 | Day surgery (SDC) | payer MEDICARE, OTHER ==
[~2025-02-19 14:07] MED LIST changes: +[UNRECOGNIZED DRUG - OTHER] SC SCH
[2025-02-19 14:35] VITALS: BP 83/49
== END 2025-02-19 14:43 | disposition home or self-care (01) ==
LOC: ATC 14:07
DX: G61.81 Chronic inflammatory demyelinating polyneuritis (principal); Z79.899 Other long term (current) drug therapy; Z88.5 Allergy status to narcotic agent
CPT/HCPCS: 96372; J9334

== ENCOUNTER 2025-03-05 01:17 | Day surgery (SDC) | payer MEDICARE, OTHER ==
[~2025-03-05 01:17] MED LIST changes: -[UNRECOGNIZED DRUG - OTHER] SC SCH
[2025-03-05] MEDS ORDERED: [UNRECOGNIZED DRUG - OTHER] SC SCH (06:00)
[2025-03-05 15:56] VITALS: BP 90/68
== END 2025-03-05 14:51 | disposition home or self-care (01) ==
LOC: ATC 01:17
DX: G61.81 Chronic inflammatory demyelinating polyneuritis (principal); Z99.3 Dependence on wheelchair; Z88.5 Allergy status to narcotic agent; Z88.8 Allergy status to other drugs, medicaments and biological substances; Z79.899 Other long term (current) drug therapy
CPT/HCPCS: 96372; J9334

== ENCOUNTER 2025-03-12 00:45 | Day surgery (SDC) | payer MEDICARE, OTHER ==
[2025-03-12] MEDS ORDERED: [UNRECOGNIZED DRUG - OTHER] SC SCH (06:00)
== END 2025-03-12 14:46 | disposition home or self-care (01) ==
LOC: ATC 00:45
DX: G61.81 Chronic inflammatory demyelinating polyneuritis (principal); Z99.3 Dependence on wheelchair; Z79.899 Other long term (current) drug therapy; Z88.5 Allergy status to narcotic agent; Z88.8 Allergy status to other drugs, medicaments and biological substances
CPT/HCPCS: 96372; J9334

== ENCOUNTER 2025-03-19 01:55 | Day surgery (SDC) | payer MEDICARE, OTHER ==
[~2025-03-19 01:55] MED LIST changes: +[UNRECOGNIZED DRUG - OTHER] SC SCH
[2025-03-19 14:27] VITALS: BP 89/51
== END 2025-03-19 14:33 | disposition home or self-care (01) ==
LOC: ATC 01:55
DX: G61.81 Chronic inflammatory demyelinating polyneuritis (principal); I11.0 Hypertensive heart disease with heart failure; I50.9 Heart failure, unspecified; J45.909 Unspecified asthma, uncomplicated; K21.9 Gastro-esophageal reflux disease without esophagitis; Z99.3 Dependence on wheelchair; Z79.899 Other long term (current) drug therapy; Z88.5 Allergy status to narcotic agent; Z88.8 Allergy status to other drugs, medicaments and biological substances
CPT/HCPCS: 96372; J9334

== ENCOUNTER 2025-03-26 02:14 | Day surgery (SDC) | payer MEDICARE, OTHER ==
[~2025-03-26 02:14] MED LIST changes: -[UNRECOGNIZED DRUG - OTHER] SC SCH
[2025-03-26] MEDS ORDERED: [UNRECOGNIZED DRUG - OTHER] SC SCH (07:00)
[2025-03-26 15:10] VITALS: BP 102/66
== END 2025-03-26 15:10 | disposition home or self-care (01) ==
LOC: ATC 02:14
DX: G61.81 Chronic inflammatory demyelinating polyneuritis (principal); M81.0 Age-related osteoporosis without current pathological fracture; I25.2 Old myocardial infarction; I69.351 Hemiplegia and hemiparesis following cerebral infarction affecting right dominant side; I50.9 Heart failure, unspecified; D68.59 Other primary thrombophilia; Z79.899 Other long term (current) drug therapy; Z88.5 Allergy status to narcotic agent; Z88.8 Allergy status to other drugs, medicaments and biological substances; Z99.3 Dependence on wheelchair
CPT/HCPCS: 96372; J9334

== ENCOUNTER 2025-04-02 02:39 | Day surgery (SDC) | payer MEDICARE, OTHER ==
[2025-04-02] MEDS ORDERED: [UNRECOGNIZED DRUG - OTHER] SC SCH (06:00)
== END 2025-04-02 14:51 | disposition home or self-care (01) ==
LOC: ATC 02:39
DX: G61.81 Chronic inflammatory demyelinating polyneuritis (principal); Z99.3 Dependence on wheelchair; Z88.5 Allergy status to narcotic agent; Z88.8 Allergy status to other drugs, medicaments and biological substances; Z79.899 Other long term (current) drug therapy
CPT/HCPCS: 96372; J9334

== ENCOUNTER 2025-04-09 03:02 | Day surgery (SDC) | payer MEDICARE, OTHER ==
[2025-04-09] MEDS ORDERED: [UNRECOGNIZED DRUG - OTHER] SC SCH (06:00)
[2025-04-09 14:44] VITALS: BP 73/60
== END 2025-04-09 14:52 | disposition home or self-care (01) ==
LOC: ATC 03:02
DX: G61.81 Chronic inflammatory demyelinating polyneuritis (principal); M81.0 Age-related osteoporosis without current pathological fracture; R56.9 Unspecified convulsions; R13.10 Dysphagia, unspecified; R27.0 Ataxia, unspecified; Z88.5 Allergy status to narcotic agent; Z88.8 Allergy status to other drugs, medicaments and biological substances
CPT/HCPCS: 96372; J9334

== ENCOUNTER 2025-04-16 02:23 | Day surgery (SDC) | payer MEDICARE, OTHER ==
[2025-04-16] MEDS ORDERED: [UNRECOGNIZED DRUG - OTHER] SC SCH (06:00)
[2025-04-16 15:03] VITALS: BP 91/64
== END 2025-04-16 15:05 | disposition home or self-care (01) ==
LOC: ATC 02:23
DX: G61.81 Chronic inflammatory demyelinating polyneuritis (principal); M81.0 Age-related osteoporosis without current pathological fracture; R56.9 Unspecified convulsions; R27.0 Ataxia, unspecified
CPT/HCPCS: 96372; J9334

== ENCOUNTER 2025-04-23 01:16 | Day surgery (SDC) | payer MEDICARE, OTHER ==
[2025-04-23] MEDS ORDERED: [UNRECOGNIZED DRUG - OTHER] SC SCH (06:00)
[2025-04-23 14:11] VITALS: BP 97/60
== END 2025-04-23 14:21 | disposition home or self-care (01) ==
LOC: ATC 01:16
DX: G61.81 Chronic inflammatory demyelinating polyneuritis (principal); R27.0 Ataxia, unspecified; M81.0 Age-related osteoporosis without current pathological fracture; Z88.5 Allergy status to narcotic agent; Z88.8 Allergy status to other drugs, medicaments and biological substances
CPT/HCPCS: J9334

== ENCOUNTER 2025-04-30 00:57 | Day surgery (SDC) | payer MEDICARE, OTHER ==
[2025-04-30] MEDS ORDERED: [UNRECOGNIZED DRUG - OTHER] SC SCH (06:00)
[2025-04-30 14:39] VITALS: BP 94/68
== END 2025-04-30 14:46 | disposition home or self-care (01) ==
LOC: ATC 00:57
DX: G61.81 Chronic inflammatory demyelinating polyneuritis (principal); R27.0 Ataxia, unspecified; R29.810 Facial weakness; Z99.3 Dependence on wheelchair
CPT/HCPCS: 96372; J9334

== ENCOUNTER 2025-05-07 00:50 | Day surgery (SDC) | payer MEDICARE, OTHER ==
[~2025-05-07 00:50] MED LIST changes: +[UNRECOGNIZED DRUG - OTHER] SC SCH
[2025-05-07 14:25] VITALS: BP 100/59
== END 2025-05-07 14:30 | disposition home or self-care (01) ==
LOC: ATC 00:50
DX: G61.81 Chronic inflammatory demyelinating polyneuritis (principal); M81.0 Age-related osteoporosis without current pathological fracture; K21.9 Gastro-esophageal reflux disease without esophagitis; I50.9 Heart failure, unspecified
CPT/HCPCS: 96372; J9334

== ENCOUNTER 2025-05-14 01:51 | Day surgery (SDC) | payer MEDICARE, OTHER ==
[~2025-05-14 01:51] MED LIST changes: -[UNRECOGNIZED DRUG - OTHER] SC SCH
[2025-05-14] MEDS ORDERED: [UNRECOGNIZED DRUG - OTHER] SC SCH (06:00)
[2025-05-14 14:19] VITALS: BP 86/69
== END 2025-05-14 14:24 | disposition home or self-care (01) ==
LOC: ATC 01:51
DX: G61.81 Chronic inflammatory demyelinating polyneuritis (principal); M81.0 Age-related osteoporosis without current pathological fracture; I50.32 Chronic diastolic (congestive) heart failure; I27.20 Pulmonary hypertension, unspecified; Z88.5 Allergy status to narcotic agent; Z88.8 Allergy status to other drugs, medicaments and biological substances
CPT/HCPCS: 96372; J9334

== ENCOUNTER 2025-05-21 01:12 | Day surgery (SDC) | payer MEDICARE, OTHER ==
[2025-05-21] MEDS ORDERED: [UNRECOGNIZED DRUG - OTHER] SC SCH (06:00)
[2025-05-21 14:33] VITALS: BP 90/65
== END 2025-05-21 14:40 | disposition home or self-care (01) ==
LOC: ATC 01:12
DX: G61.81 Chronic inflammatory demyelinating polyneuritis (principal); M81.0 Age-related osteoporosis without current pathological fracture; I27.20 Pulmonary hypertension, unspecified; I50.32 Chronic diastolic (congestive) heart failure; Z88.5 Allergy status to narcotic agent; Z88.8 Allergy status to other drugs, medicaments and biological substances
CPT/HCPCS: 96372; J9334

== ENCOUNTER 2025-05-28 14:38 | Day surgery (SDC) | payer MEDICARE, OTHER ==
[2025-05-28] MEDS ORDERED: [UNRECOGNIZED DRUG - OTHER] SC SCH (15:30)
== END 2025-05-28 15:47 | disposition home or self-care (01) ==
LOC: ATC 14:38
DX: G61.81 Chronic inflammatory demyelinating polyneuritis (principal); I10 Essential (primary) hypertension; Z88.5 Allergy status to narcotic agent; Z88.8 Allergy status to other drugs, medicaments and biological substances; Z79.899 Other long term (current) drug therapy
CPT/HCPCS: 96372; J9334

== ENCOUNTER 2025-06-04 01:53 | Day surgery (SDC) | payer MEDICARE, OTHER ==
[2025-06-04] MEDS ORDERED: [UNRECOGNIZED DRUG - OTHER] SC SCH (10:55)
[2025-06-04 14:23] VITALS: BP 90/66
== END 2025-06-04 14:28 | disposition home or self-care (01) ==
LOC: ATC 01:53
DX: G61.81 Chronic inflammatory demyelinating polyneuritis (principal); Z88.5 Allergy status to narcotic agent; Z88.8 Allergy status to other drugs, medicaments and biological substances
CPT/HCPCS: 96372; J9334

== ENCOUNTER 2025-06-11 01:28 | Day surgery (SDC) | payer MEDICARE, OTHER ==
[2025-06-11] MEDS ORDERED: [UNRECOGNIZED DRUG - OTHER] SC SCH (06:00)
[2025-06-11 14:29] VITALS: BP 86/60
== END 2025-06-11 14:36 | disposition home or self-care (01) ==
LOC: ATC 01:28
DX: G61.81 Chronic inflammatory demyelinating polyneuritis (principal); M81.0 Age-related osteoporosis without current pathological fracture; D68.59 Other primary thrombophilia; K21.9 Gastro-esophageal reflux disease without esophagitis; I25.2 Old myocardial infarction; I50.9 Heart failure, unspecified; Z79.899 Other long term (current) drug therapy; Z99.3 Dependence on wheelchair; Z88.5 Allergy status to narcotic agent; Z88.8 Allergy status to other drugs, medicaments and biological substances; Z90.49 Acquired absence of other specified parts of digestive tract
CPT/HCPCS: 96372; J9334

== ENCOUNTER 2025-06-18 02:45 | Day surgery (SDC) | payer MEDICARE, OTHER ==
[2025-06-18] MEDS ORDERED: [UNRECOGNIZED DRUG - OTHER] SC SCH (06:00)
[2025-06-18 14:34] VITALS: BP 93/66
== END 2025-06-18 14:38 | disposition home or self-care (01) ==
LOC: ATC 02:45
DX: G61.81 Chronic inflammatory demyelinating polyneuritis (principal); I89.0 Lymphedema, not elsewhere classified; J45.909 Unspecified asthma, uncomplicated; K21.9 Gastro-esophageal reflux disease without esophagitis; I25.2 Old myocardial infarction; M81.0 Age-related osteoporosis without current pathological fracture; I69.351 Hemiplegia and hemiparesis following cerebral infarction affecting right dominant side; R56.9 Unspecified convulsions; Z79.891 Long term (current) use of opiate analgesic; Z79.899 Other long term (current) drug therapy; Z88.5 Allergy status to narcotic agent; Z88.8 Allergy status to other drugs, medicaments and biological substances; Z99.3 Dependence on wheelchair
CPT/HCPCS: 96372; J9334

== ENCOUNTER 2025-06-25 02:52 | Day surgery (SDC) | payer MEDICARE, OTHER ==
[2025-06-25] MEDS ORDERED: [UNRECOGNIZED DRUG - OTHER] SC SCH (06:00)
[2025-06-25] MEDS ORDERED: Sod Ferric Gluc Complx/Sucrose 125 MG in NS 100 ML IV SCH (06:00)
[2025-06-25 15:58] VITALS: BP 108/70
== END 2025-06-25 17:10 | disposition home or self-care (01) ==
LOC: ATC 02:52
DX: G61.81 Chronic inflammatory demyelinating polyneuritis (principal); D50.0 Iron deficiency anemia secondary to blood loss (chronic); I50.32 Chronic diastolic (congestive) heart failure; I27.20 Pulmonary hypertension, unspecified
CPT/HCPCS: 96365; 96372; J2916; J9334

== ENCOUNTER 2025-06-27 03:45 | Day surgery (SDC) | payer MEDICARE, OTHER ==
[~2025-06-27 03:45] MED LIST changes: +Sod Ferric Gluc Complx/Sucrose 125 MG in NS 100 ML IV SCH
[2025-06-27 15:34] VITALS: BP 107/68
== END 2025-06-27 16:42 | disposition home or self-care (01) ==
LOC: ATC 03:45
DX: D50.0 Iron deficiency anemia secondary to blood loss (chronic) (principal); G61.81 Chronic inflammatory demyelinating polyneuritis; G89.29 Other chronic pain; I50.32 Chronic diastolic (congestive) heart failure; I27.20 Pulmonary hypertension, unspecified; I87.2 Venous insufficiency (chronic) (peripheral); M81.0 Age-related osteoporosis without current pathological fracture
CPT/HCPCS: 96365; J2916

== ENCOUNTER 2025-07-02 00:16 | Day surgery (SDC) | payer MEDICARE, OTHER ==
[~2025-07-02 00:16] MED LIST changes: -Sod Ferric Gluc Complx/Sucrose 125 MG in NS 100 ML IV SCH
[2025-07-02] MEDS ORDERED: [UNRECOGNIZED DRUG - OTHER] SC SCH (06:00)
[2025-07-02 14:40] VITALS: BP 103/59
== END 2025-07-02 14:48 | disposition home or self-care (01) ==
LOC: ATC 00:16
DX: G61.81 Chronic inflammatory demyelinating polyneuritis (principal); M81.0 Age-related osteoporosis without current pathological fracture; I11.0 Hypertensive heart disease with heart failure; I50.9 Heart failure, unspecified; Z88.5 Allergy status to narcotic agent; Z88.8 Allergy status to other drugs, medicaments and biological substances
CPT/HCPCS: 96372; J9334

== ENCOUNTER 2025-07-16 08:38 | Day surgery (SDC) | payer MEDICARE, OTHER ==
[~2025-07-16 08:38] MED LIST changes: +[UNRECOGNIZED DRUG - OTHER] SC SCH
[2025-07-16] MEDS ORDERED: Potassium Chlo20 ME1 PO (14:53)
[2025-07-16 14:54] VITALS: BP 105/82
== END 2025-07-16 14:28 | disposition home or self-care (01) ==
LOC: ATC 08:38
DX: G61.81 Chronic inflammatory demyelinating polyneuritis (principal); I50.32 Chronic diastolic (congestive) heart failure; I27.20 Pulmonary hypertension, unspecified
CPT/HCPCS: 96372; J9334